=== PATIENT | female | born 1930 | race Caucasian/White ===

== ENCOUNTER 2017-11-24 11:55 | Emergency (ER) | payer MEDICARE, OTHER ==
[~2017-11-24 11:55] MED LIST: ALBU8I INH; AMLO5 PO; APIX5 PO; ATOR20TA42 PO; FEXO180 PO; FURO1TAB93 PO; KLOR20TA6 PO; LANO0.1212 PO; LEVO.1 PO; MONT10TA2 PO; OMEP40CA2 PO; PACE200T4 PO; PRED5 PO; SPIRCAP INH
[2017-11-24 12:30] VITALS: BP 133/60; PULSE 70; RESP 20; TEMP 97.7; O2SAT 94
[2017-11-24] MEDS ORDERED: CALCIUM CHLORIDE PO (14:02)
[2017-11-24] MEDS ORDERED: FURO1TAB60 PO (14:02)
[2017-11-24] MEDS ORDERED: VITAMIN B12 PO (14:02)
[2017-11-24] MEDS ORDERED: PRED5TAB PO (14:02)
[2017-11-24] MEDS ORDERED: SPIRCAP INH (14:02)
[2017-11-24] MEDS ORDERED: APIX2.5T PO (14:02)
[2017-11-24] MEDS ORDERED: PANT40TA3 PO (14:02)
[2017-11-24] MEDS ORDERED: LEVO.1 PO (14:02)
[2017-11-24] MEDS ORDERED: VENTAER INH (14:02)
[2017-11-24] MEDS ORDERED: AMIO0.1T PO (14:02)
[2017-11-24] MEDS ORDERED: MONT10TA2 PO (14:02)
[2017-11-24] MEDS ORDERED: ALBU1.25 NEB (14:02)
[2017-11-24] MEDS ORDERED: FEXO15TA PO (14:02)
[2017-11-24] MEDS ORDERED: VITA1000 PO (14:02)
[2017-11-24] MEDS ORDERED: DIGO0.12 PO (14:02)
--- NOTE | 2017-11-24 14:51 | PD ---
HPI Chief Complaint: Eye Problems/Injury Time Seen by Provider: 14:49 Travel History International Travel<30 days: No Contact w/Intl Traveler<30days: No Traveled to known affect area: No History of Present Illness HPI Patient comes in complaining of left eye pain describes as sticking like pain ongoing for a week over the lower eyelid medial aspect. Patient denies anything making his symptoms better or worse. Denies any fevers, nausea, vomiting, headaches. Reports is making her vision somewhat blurry in that eye at times. Patient reports a history of cataracts denies any other known eye problems. Denies any foreign body sensation, drainage, or trauma. Denies any radiation of pain. Patient reports recently moving to [place] from [place] about a week ago. PFSH Past Medical History Hx Anticoagulant Therapy: Yes (ELIQUIS ) Asthma: Yes Atrial Fibrillation: Yes Blood Disorders: No Anxiety: No Depression: No Heart Rhythm Problems: No Cancer: Yes (r breast cance) Cardiovascular Problems: No High Cholesterol: No Chest Pain: No Congestive Heart Failure: Yes COPD: Yes Coronary Artery Disease: Yes Diabetes: No Endocrine: No Gastrointestinal Disorders: Yes (stomach pushed up against esphogus) GERD: Yes Genitourinary: No Hypertension: Yes Immune Disorder: No Musculoskeletal: No Neurologic: No Psychiatric: No Reproductive: No Respiratory: No Radiation Therapy: Yes Thyroid Disease: No Past Surgical History Appendectomy: Yes Cholecystectomy: Yes Other Surgery: Yes (left sided masectomy, plate in left arm) Social History Alcohol Use: No Tobacco Use: No Substance Use: No Allergies-Medications (Allergen,Severity, Reaction): Coded Allergies: Sulfa (Sulfonamide Antibiotics) (Unverified Allergy, Unknown, 11/24/17) fluticasone (Unverified Allergy, Unknown, 11/24/17) fluticasone furoate (Unverified Allergy, Unknown, 11/24/17) salmeterol (Unverified Allergy, Unknown, 11/24/17) Reported Meds & Prescriptions Reported Meds & Active Scripts Active Erythromycin Opth Oint 5 Mg/Gm Oint 1 Applic LEFT EYE BID Reported Jacqueline Allergy (Fexofenadine HCl) 180 Mg Tab 180 Mg PO DAILY Vitamin D-1000 (Cholecalciferol) 1,000 Unit Tab 5,000 Units PO WEDNESDAY Ventolin Hfa 18 GM Inh (Albuterol Sulfate) 90 Mcg/Act Aer 1 Puff INH Q4H PRN Albuterol Neb (Albuterol Sulfate) 1.25 Mg/3 Ml Neb 1.25 Mg NEB Q4HR NEB PRN Spiriva Handihaler (Tiotropium Inh) 18 Mcg Cap 18 Mcg INH DAILY 1 capsule = 18 mcg Singulair (Montelukast Sodium) 10 Mg Tab 10 Mg PO HS Digoxin 0.125 Mg Tab 0.5 Tab PO DAILY [Vitamin B12] 200 Mcg PO DAILY Synthroid (Levothyroxine Sodium) 100 Mcg Tab 100 Mcg PO DAILY Pantoprazole (Pantoprazole Sodium) 40 Mg Tab 40 Mg PO DAILY Lasix (Furosemide) 40 Mg Tab 40 Mg PO DAILY Prednisone 5 Mg Tab 5 Mg PO DAILY Amiodarone (Amiodarone HCl) 100 Mg Tab 100 Mg PO M-F Eliquis (Apixaban) 2.5 Mg Tab 2.5 Mg PO BID [Calcium Chloride ] 20 Meq PO BID Review of Systems Except as stated in HPI: all other systems reviewed are Neg Physical Exam Narrative GENERAL: Well-developed, overly nourished, in no acute distress, and non-ill appearing. SKIN: Focused skin assessment warm and dry. HEAD: Atraumatic. Normocephalic. EYES: Pupils equal and round. EOMI. No scleral icterus. Minimal injection left conjunctiva without drainage. ENT: No nasal bleeding or discharge. Mucous membranes pink and moist. NECK: Trachea midline. Supple. No nuclear rigidity. RESPIRATORY: No accessory muscle use. No respiratory distress. GASTROINTESTINAL: Abdomen soft, non-tender, nondistended, and no guarding. Hepatic and splenic margins not palpable. No pulsatile mass. MUSCULOSKELETAL: No obvious deformities. No clubbing. No cyanosis. No edema. Full range of motion. NEUROLOGICAL: Awake and alert. No obvious cranial nerve deficits. Motor grossly within normal limits. Normal speech. PSYCHIATRIC: Appropriate mood and affect; insight and judgment normal. Data Data Last Documented VS Vital Signs Date Time Temp Pulse Resp B/P (MAP) Pulse Ox O2 Delivery O2 Flow Rate FiO2 11/24/17 12:30 97.7 70 20 133/60 (84) 94 Orders Orders Proparacaine 0.5% Opth Soln (Alcaine 0.5 (11/24/17 15:00) Ed Discharge Order (11/24/17 15:17) MDM Medical Decision Making Medical Screen Exam Complete: Yes Emergency Medical Condition: Yes Differential Diagnosis Allergic conjunctivitis, viral conjunctivitis, bacterial conjunctivitis, corneal abrasion, corneal ulcer, glaucoma Narrative Course Patient with mild conjunctivitis. No evidence of foreign body by history or exam. No history to suspect corneal ulceration as well. There is no evidence of iritis, glaucoma, preseptal cellulitis, periorbital or orbital cellulitis. Will place patient on ophthalmologic antibiotics for nonspecific conjunctivitis. This was discussed with the patient and her daughter. The patient was instructed to follow up with their physician or return here if worsened, increased pain, decreased vision, swelling around the eye or as needed. Ophthalmology referral was given. The patient and daughter agreed with plan. Patient in no obvious distress upon re-evaluation. Patient was offered additional testing but declined at this time. Patient was asked if they wanted to speak to my attending, which the patient did not wish to do at this time. Any questions/concerns in reference to patient diagnosis/condition discussed and clarified prior to patient's discharge. Reinforced sheer importance of close follow up with patient's primary physician or primary care clinic and cafeteria or lunchroom checker. Instructed patient to return to ED immediately, if symptoms return/worsen. Patient showed understanding of above instructions. Further instructions and recommendations were detailed in discharge paperwork. Patient left without difficulty out of ED at discharge. Procedures Procedure Narrative Verbal consent was obtained. Affected eye was anesthetized using proparacaine. Fluorescein staining and Wood lamp exam performed with no uptake seen. Negative Romulo sign. No hyphema, hyperemia, or rust ring. Eyelid was everted with no foreign body noted. No tenderness bilateral temporal arteries to palpation. Intraocular pressure was obtained using a Nicholas-Pen measurements of 10, 13, and 13 were noted. Patient tolerated procedure well. Diagnosis Primary Impression: Conjunctivitis Qualified Codes: H10.32 - Unspecified acute conjunctivitis, left eye Referrals: Elizabeth Michelle MD Patient Instructions: Conjunctivitis (ED), General Instructions Additional Instructions: Follow-up with your primary care physician and/or cafeteria or lunchroom checker in one to 3 days for reevaluation. Take all medication as prescribed. Return to the emergency department if symptoms get worse. Med/Other Pt SpecificInfo: Prescription(s) given Scripts Erythromycin Opth Oint (Erythromycin Opth Oint) 5 Mg/Gm Oint 1 APPLIC LEFT EYE BID for Infection, #1 TUBE 0 Refills Prov: Boni Riggs MD 11/24/17 Disposition: 01 DISCHARGE HOME Condition: Stable Jefry Contreras Nov 24, 2017 14:51
[2017-11-24] MEDS ORDERED: PROPARACAINE HCL 0.5% OPHT SOLN 15 ML BTL LEFT EYE ONE (15:00)
[2017-11-24] MEDS ORDERED: ERYTOIN10 LEFT EYE (15:16)
[2017-11-25] MEDS ORDERED: CYAN100 PO (12:20)
== END 2017-11-24 15:28 | disposition home or self-care (01) ==
LOC: PHED 11:55 → PHEFT 15:28
DX: H10.32 Unspecified acute conjunctivitis, left eye (principal); I11.0 Hypertensive heart disease with heart failure; I50.9 Heart failure, unspecified; I25.10 Atherosclerotic heart disease of native coronary artery without angina pectoris; I48.91 Unspecified atrial fibrillation; J44.9 Chronic obstructive pulmonary disease, unspecified; Z79.01 Long term (current) use of anticoagulants
CPT/HCPCS: 99283